=== PATIENT | female | born 1965 | race Caucasian/White ===

== ENCOUNTER 2018-03-01 23:30 | Observation (INO) | payer BC ==
[~2018-03-01] VITALS: Ht 162.6 cm; Wt 62.7 kg
--- NOTE | ~2018-03-01 | HEMODYNAMI ---
PATIENT:ILENE AVILA MEDICAL RECORD: [id number] : 67 LOCATION:D.MS [facility]2206 ADMISSION DATE: 03/02/18 Generatedon:03/02/201812:17 Patient name: ILENE AVILA Patient #: [id number] SSN: D OB: 1965 Date of study: 03/02/2018 Page: Of Hemodynamic Procedure Report Patient Data Patient Demographics Procedure consent was obtained First Name: ILENE Gender: Female Last Name: AUSTIN : 1965 Patient #: [id number] Age: 53 year(s) Race: Unknown Additional ID: [id number] Contact details Address: [address] [place] [address] LINK circle State: [place] City: [place] Zip code: [address] Past Medical History Allergies Allergen Reaction Date Comments Reported Other allergy 03/02/2018 CEFTIN, CODEINE, MORPHINE Admission Admission Data Admission Date: 03/02/2018 Admission Time: 1:04 Room #: D.2206 Lab Results Lab Result Date: 03/02/2018 Lab Result Time: 0:00 Biochemistry Name Units Result Min Max BUN mg/dl 17 --(---*)-- 7 18 Creatinine mg/dl 0.8 --(-*--)-- 0.6 1.3 CBC Name Units Result Min Max Hemoglobin g/dl 14.7 --(-*--)-- 13.5 17.5 Procedure Procedure Types Cath Procedure Diagnostic Procedure LHC LHC w/Coronaries Procedure Description Procedure Date Procedure Date: 03/02/2018 Procedure Start Time: 12:05 Procedure End Time: 12:15 Procedure Staff Name Function Melo Rivas MD Performing Physician Julia John RT Monitor Anneliese Quispe RT Scrub Maged Sanchez RN Nurse Procedure Data Cath Procedure Fluoroscopy Diagnostic fluoroscopy Total fluoroscopy Time: time: 3.52 min 3.52 min Diagnostic fluoroscopy Total fluoroscopy dose: 292 dose: 292 mGy mGy Contrast Material Contrast Material Type Amount (ml) Isovue 300 57 Entry Location Entry Primary Successful Side Size Upsize Upsize Entry Closure [place] ccessful Closure Location (Fr) 1 (Fr) 2 (Fr) Remarks Device Remarks Radial Right 6 Fr Mechanical artery Short Compression Estimated blood loss: 10 ml Diagnostic catheters Device Type Used For End Catheter Placement DIAGNOSTIC [place] 110cm 5 Procedure Fr catheter ([id number]) DIAGNOSTIC AR1 MOD 5Fr Procedure catheter ([id number]) Procedure Complications No complications Procedure Medications Medication Administration Route Dosage Oxygen 2 l/min Heparin Flush Bag added to field 2 bags (1000units/500ml NS) 0.9% NaCl I.V. 100 ml/hr Benadryl I.V. 50 mg Lidocaine 2% added to field 20 Radial Cocktail added to field 1 syringe (Verapomil 2mg/Nitro 400mcg/Heparin 1500units) Fentanyl I.V. 50 mcg Versed I.V. 1 mg Radial Cocktail I.A. 1 syringe (Verapomil 2mg/Nitro 400mcg/Heparin 1500units) Fentanyl I.V. 50 mcg Versed I.V. 1 mg Hemodynamics Rest HGB: 14.7 (g/dl) Heart Rate: 62 (bpm) Pressure Samples Time Site Value (mmHg) Purpose Heart Use Rate(bpm) 12:07 LV 154/-2,17 Snapshot 70 Snapshots Pre Cath Intra NCS Post Cath Vital Signs Time Heart Resp SPO2 etCO2 NIBP (mmHg) Rhythm Pain Sedation Rate (ipm) (%) (mmHg) Status Level (bpm) 11:44:05 63 17 93 0 147/80(113) NSR 0 (11) 10(A) , No pain 11:48:19 62 15 89 0 136/79(121) NSR 0 (11) 10(A) , No pain 11:52:29 65 16 92 0.7 141/79(114) NSR 0 (11) 10(A) , No pain 11:56:41 56 17 93 0 135/80(102) NSR 0 (11) 10(A) , No pain 12:00:50 63 17 93 0 145/77(137) NSR 0 (11) 10(A) , No pain 12:05:04 64 17 94 20.5 148/79(117) NSR 0 (11) 10(A) , No pain 12:09:23 77 17 94 18.1 125/68(95) NSR 0 (11) 9(A) , No pain 12:13:32 75 17 96 20.4 131/66(92) NSR 0 (11) 9(A) , No pain 12:16:43 74 16 96 27.3 137/71(97) NSR 0 (11) 9(A) , No pain Medications Time Medication Route Dose Verified Delivered Reason Notes Effectiveness by by 11:45:05 Oxygen 2 l/min Melo Maged for Rob Sanchez RN arrhythmia 11:45:13 Heparin Flush added 2 bags Melo Maged used for Bag to Rob Sanchez RN procedure (1000units/500ml field NS) 11:45:22 0.9% NaCl I.V. 100 Melo Maged Per ml/hr Rob Sanchez RN physician 11:45:37 Benadryl I.V. 50 mg Melo Maged Per Rob Sanchez RN physician 11:45:47 Lidocaine 2% added 20ml Melo Maged used for to vial Rob Sanchez RN procedure field 11:51:08 Radial Cocktail added 1 Melo Maged used for (Verapomil to syringe Rob Sanchez RN procedure 2mg/Nitro field 400mcg/Heparin 1500units) 12:05:17 Fentanyl I.V. 50 mcg Melo Maged for sedation Rob Sanchez RN 12:05:24 Versed I.V. 1 mg Melo Maged for sedation Rob Sanchez RN 12:06:09 Radial Cocktail I.A. 1 Melo Melo for (Verapomil syringe Rob Rivas MD vasodilation 2mg/Nitro 400mcg/Heparin 1500units) 12:07:30 Fentanyl I.V. 50 mcg Melo Maged for sedation Rob Sanchez RN 12:07:36 Versed I.V. 1 mg Melo Maged for sedation Rob Sanchez vault teller Log Time Note 11:30:29 Maged Sanchez RN sent for patient. Start room use. 11:42:27 Signed procedure consent form obtained from patient. 11:42:37 Time tracking: Regular hours (M-F 7:00 - 5:00) 11:42:40 Plan of Care:Hemodynamics will remain stable., Cardiac rhythm will remain stable., Comfort level will be maintained., Respiratory function will remain adequate., Patient/ family verbilizes understanding of procedure., Procedure tolerated without complication., Recovers from procedure without complications.. 11:42:48 Patient received from Med/Surg to CCL 2 Alert and oriented. Tansferred to table in Supine position. 11:42:49 Warm blankets applied, and joaquina hugger turned on for patient comfort. 11:42:50 Correct patient and procedure confirmed by team. 11:42:50 ECG and BP/O2 sat monitors applied to patient. 11:42:53 Vital chart was started 11:42:54 Baseline sample Acquired. 11:42:58 Rhythm: sinus rhythm 11:42:59 Full Disclosure recording started 11:43:01 Pre-procedure instructions explained to patient. 11:43:02 Pre-op teaching completed and patient verbalized understanding. 11:43:04 Family in waiting room. 11:43:05 Patient NPO since Midnight. 11:43:22 Patient allergic to Other allergyCEFTIN, CODEINE, MORPHINE 11:43:25 Is patient on blood thinner?No 11:43:26 Patient diabetic? No. 11:43:50 Patient not . Patient has had tubal. 11:43:53 Previous problem with sedation/anesthesia? No ? 11:43:54 Snore? Yes 11:43:55 Sleep apnea? No 11:43:56 Deviated septum? No 11:43:56 Opens mouth fully? Yes 11:43:57 Sticks out tongue? Yes 11:43:59 Airway obstruction? No ? 11:44:00 Dentures? No ? 11:44:02 Modified Blas's test Ulnar < 7 seconds 11:44:04 Patient pain scale 0/10 ?. 11:44:08 IV patent on arrival in right antecubital with 0.9% NaCl at [facility]. 11:44:37 Lab Result : BUN 17 mg/dl 11:44:37 Lab Result : Creatinine 0.8 mg/dl 11:44:37 Lab Result : Hemoglobin 14.7 g/dl 11:44:42 Lab results completed and on chart. 11:44:44 Right Radial & Right Groin area was prepped with chlora-prep and draped in sterile fashion 11:44:45 Alarms reviewed by R. N. 11:44:45 Sharps counted by scrub and verified by R.N. 11:44:48 Use device set Radial Dx or PCI 11:44:50 ACIST Syringe (65895) opened to sterile field. 11:44:51 Bag Decanter (2001S) opened to sterile field. 11:44:52 ACIST Hand Control (44980) opened to sterile field. 11:44:52 ACIST Manifold (05894) opened to sterile field. 11:44:53 Tegaderm 4 x 4 (1626W) opened to sterile field. 11:44:54 Medline Cath Pack ([id number]) opened to sterile field. 11:44:55 DIAGNOSTIC WIRE .035 260cm J wire (896912) opened to sterile field. 11:44:55 MBrace Wrist Support ([id number]) opened to sterile field. 11:44:56 SHEATH 6FR Slender (66-6576) opened to sterile field. 11:45:05 Oxygen 2 l/min was administered by Maged Sanchez RN; for arrhythmia; 11:45:13 Heparin Flush Bag (1000units/500ml NS) 2 bags added to field was administered by Maged Sanchez RN; used for procedure; 11:45:22 0.9% NaCl 100 ml/hr I.V. was administered by Maged Sanchez RN; Per physician; 11:45:37 Benadryl 50 mg I.V. was administered by Maged Sanchez RN; Per physician; 11:45:47 Lidocaine 2% 20ml vial added to field was administered by Maged Sanchez RN; used for procedure; 11:51:08 Radial Cocktail (Verapomil 2mg/Nitro 400mcg/Heparin 1500units) 1 syringe added to field was administered by Maged Sanchez RN; used for procedure; 12:05:08 Physician arrived 12:05:09 --------ALL STOP TIME OUT------ 12:05:09 Final Timeout: patient, procedure, and site verified with staff and physician. All members of the team are in agreement. 12:05:13 Right Radial & Right Groin site verified by team. 12:05:16 Physical assessment completed. ASA score P 2 - A patient with mild systemic disease as per Melo Rivas MD. 12:05:17 Fentanyl 50 mcg I.V. was administered by Maged Sanchez RN; for sedation; 12:05:20 Sedation plan: IV Moderate Sedation Medication:Versed, Fentanyl 12:05:24 Versed 1 mg I.V. was administered by Maged Sanchez RN; for sedation; 12:05:36 Procedure started. 12:05:47 Local anesthetic to right radial artery with Lidocaine 2% by Melo Rivas MD.INITIAL ACCESS ONLY 12:05:58 A 6 Fr Short sheath was inserted into the Right Radial artery 12:06:09 Radial Cocktail (Verapomil 2mg/Nitro 400mcg/Heparin 1500units) 1 syringe I.A. was administered by Melo Rivas MD; for vasodilation; 12:06:54 A DIAGNOSTIC [place] 110cm 5 Fr catheter (112591) was advanced over the wire and used for Procedure. 12:07:30 Fentanyl 50 mcg I.V. was administered by Maged Sanchez RN; for sedation; 12:07:32 LV gram done using ULLOA 12:07:36 Versed 1 mg I.V. was administered by Maged Sanchez RN; for sedation; 12:07:39 EF : 60 % 12:08:02 LCA angiography performed. 12:08:08 NEEDLE Cook 21G 4cm Radial ([id number]) opened to sterile field. 12:10:25 Catheter removed. 12:11:27 A DIAGNOSTIC AR1 MOD 5Fr catheter ([id number]) was advanced over the wire and used for Procedure. 12:11:45 RCA angiography performed. 12:13:21 Catheter removed. 12:13:30 Sheath removed intact; hemostasis achieved with Mechanical Compression to the Right Radial artery. 12:14:34 Procedure ended.(Physican Out) 12:14:44 Fluoroscopy time 03.52 minutes. 12:14:49 Fluoroscopy dose: 292 mGy 12:14:49 Flurop Dose total: 292 12:14:54 Contrast amount:Isovue 300 57ml. 12:14:55 Sharps counted by scrub and verified by R.N. 12:15:00 TR band inflated with 10cc of air. 12:15:02 Insertion/operative site no bleeding no hematoma. 12:15:08 Post-procedure physical assessment completed. ASA score P 2 - A patient with mild systemic disease as per Melo Rivas MD. 12:15:11 Post procedure rhythm: unchanged. 12:15:14 Estimated blood loss: 10 ml 12:15:16 Post procedure instruction explained to patient.Patient verbalizes understanding. 12:15:26 Procedure and supply charges have been captured, reviewed, submitted and are correct. 12:15:44 Procedure Complication : No complications 12:15:47 Vital chart was stopped 12:15:48 See physician's report for complete and final results. 12:15:50 Report given to Pre/Post Procedure Room. 12:15:53 Patient transfered to Pre/Post Procedure Room with Stretcher. 12:15:55 Procedure ended. 12:15:55 Full Disclosure recording stopped 12:15:59 End room use (Document Last) Device Usage Item Name Manufacture Quantity Catalog Hospital Part Current Minimal Lot# / Number Charge Number Stock Stock Serial# Code ACIST Acist 1 79719 [id number] 574828 043905 20 Syringe Medical (16794) Systems Inc Bag Microtek 1 2001S 985091 68945 867403 5 Decanter Medical Inc. () ACIST Hand Acist 1 81301 545709 459099 726806 5 Control Medical (15066) Systems Inc ACIST Acist 1 03874 776682 844115 833207 5 Manifold Medical (65277) Systems Inc Tegaderm 4 3M 1 1626W 766849 506399 669079 5 x 4 (1626W) Medline Medline 1 [id number] 014017 77786 075265 5 Cath Pack ([id number]) DIAGNOSTIC [facility] 1 085804 412667 682395 773016 30 WIRE .035 260cm J wire (459788) MBrace Advanced 1 140-0250-00 108358 14706 619389 5 Wrist Vascular Support Dynamics ([id number]) SHEATH 6FR Terumo 1 [id number] 021714 449333 066027 5 Slender (80-1060) DIAGNOSTIC Terumo 1 40-8393 258005 980195 412436 5 [place] 110cm 5 Fr catheter (254725) NEEDLE Fanbase Medical 1 [id number] 561659 637223 724886 5 21G 4cm Radial (Q70835) DIAGNOSTIC Cardinal 1 [id number] 557153 011196 742046 15 AR1 MOD 5Fr Health catheter (718926N) Signature Audit [place] Stage Time Signature Unsigned Intra-Procedure 03/02/2018 Julia John 12:17:30 PM RT(R) Signatures Monitor : Julia John Signature : RT Date : Time : [facility] [address] [place] [address]
[2018-03-01] MEDS ORDERED: ULTRAM50 MG (23:36)
[2018-03-02] VITALS: BP 125/75; BP 134/75
[2018-03-02 00:07] LABS: HEMATOCRIT 36.5 % (36.0-48.0); HEMOGLOBIN 12.1 g/dL (12-16); LYMPHOCYTES 23.8 % (15-50); MCH 29.2 pg (26.0-34.0); MCHC 33.2 g/dL (31.0-37.0); MCV 88.2 fL (80.0-100.0); MEAN PLATELET VOLUME 9.4 fL (7.4-10.4); NEUTROPHILS 69.4 % (40-80); PLATELET COUNT 303 10x3/uL (130-400); RBC 4.14 10x6/uL (4.00-5.40); WBC 12.1 10x3/uL (4.8-10.8)
--- NOTE | 2018-03-02 00:07 | NUR ---
ASPIRIN 325MG PO GIVEN. NITRO SL GIVEN, PAIN IS AN 8, MID STERNAL.
[2018-03-02 00:09] LABS: APTT 25.6 SECONDS (22.8-39.4); INR 0.95 (0.85-1.17); PROTIME 12.2 SECONDS (11.6-15.0)
[2018-03-02 00:28] LABS: ALBUMIN 3.7 g/dL (3.4-5.0); ALKALINE PHOSPHATASE 65 U/L (46-116); ALT (SGPT) 22 U/L (10-68); BILIRUBIN - TOTAL 0.19 mg/dL (0.2-1.3); CALC OSMOLALITY 279 mosm/kg (275-300); CALCIUM 8.8 mg/dL (8.5-10.1); CARBON DIOXIDE 25.8 mmol/L (21.0-32.0); CHLORIDE - SERUM 103 mmol/L (98-107); CKMB 0.8 U/L (0.0-3.6); CREATINE KINASE 117 UL (21-215); CREATININE - SERUM 0.9 mg/dL (0.6-1.3); GLUCOSE 110 mg/dL (74-106); POTASSIUM - SERUM 3.4 mmol/L (3.5-5.1); PROTEIN - SERUM 6.9 g/dL (6.4-8.2); SODIUM 140 mmol/L (136-145); UREA NITROGEN 12 mg/dL (7-18); eGFR NON AFRICAN AMERICAN 70 mL/min (90-120)
[2018-03-02 00:29] LABS: TROPONIN-I < 0.017 ng/mL (0.000-0.060)
--- NOTE | 2018-03-02 00:56 | NUR ---
PT AMBULATED TO RESTROOM.
[2018-03-02 01:17] LABS: APPEARANCE CLEAR (CLEAR); BILIRUBIN NEGATIVE (NEGATIVE); COLOR STRAW (YELLOW); GLUCOSE NEGATIVE (NEGATIVE); KETONE NEGATIVE (NEGATIVE); NITRITE NEGATIVE (NEGATIVE); PROTEIN NEGATIVE (NEGATIVE); UROBILINOGEN NORMAL (NORMAL)
[2018-03-02 01:42] VITALS: BP 109/74
--- NOTE | 2018-03-02 02:30 | NUR ---
RECEIVED PT FROM ER VIA W/C. ACCOMPANIED BY SPOUSE. ALERT AND ORIENTED X4. ANXIOUS AND RESTLESS. STATES SHE HAS BEEN HURTING IN HER LT GROIN/HIP FOR SEVERAL MONTHS AND HAD CHEST PAIN YESTERDAY. POINTS TO EPIGASTRIC REGION AND RATES PAIN 2 AND INTERMITTENT. TELEMETRY SHOWS SB-SR WITH RATE OF 58-67. RESP EVEN AND NONLABORED. BBS CTA. ABD SOFT, NONTENDER. BS PRESENT X4 QUADS. VOIDS WITHOUT DIFF. AMBULATORY. REPORTS ONLY HOME MED IBUPROFEN 800MG TID. SPOUSE CONSTANTLY INTERRUPTING STAFF DURING ASSESSMENT QUESTIONS AND VOICING HIS OPINION ON WHAT HER DIAGNOSIS MAY BE AND ARGUING. SALINE LOCK NOTED TO RT AC. NO DISTRESS. CL IN REACH.
[2018-03-02] MEDS ORDERED: IBUPROFEN800 MG (02:43)
[2018-03-02 03:03] VITALS: BP 139/75; Ht 162.6 cm; Wt 62.7 kg
[2018-03-02 05:23] LABS: CKMB 1.1 U/L (0.0-3.6); CREATINE KINASE 95 UL (21-215); TROPONIN-I < 0.017 ng/mL (0.000-0.060)
[2018-03-02 08:22] VITALS: BP 134/69
--- NOTE | 2018-03-02 08:53 | NUR ---
PT AOX4 RESP EVEN AND NONLABORED PT DENIES NEEDS AT THIS TIME IV TO RIGHT AC PATENT AND INTACT AT THIS TIME IV TO RIGHT AC PATENT AND INTACT AT THIS TIME SRX2 BED AT LOWEST SETTING CALL LIGHT WITHIN REACH WILL CONTINUE TO MONITOR
[2018-03-02 09:34] LABS: HEMATOCRIT 42.8 % (36.0-48.0); LYMPHOCYTES 27.7 % (15-50); MCH 32.2 pg (26.0-34.0); MCHC 34.3 g/dL (31.0-37.0); MEAN PLATELET VOLUME 10.3 fL (7.4-10.4); NEUTROPHILS 63.4 % (40-80); PLATELET COUNT 244 10x3/uL (130-400); RBC 4.57 10x6/uL (4.00-5.40); RDW 12.6 % (11.5-14.5)
[2018-03-02 09:36] LABS: HEMOGLOBIN 14.7 g/dL (12-16); MCV 93.7 fL (80.0-100.0)
[2018-03-02 09:38] LABS: CALC OSMOLALITY 284 mosm/kg (275-300); CALCIUM 8.5 mg/dL (8.5-10.1); CARBON DIOXIDE 23.6 mmol/L (21.0-32.0); CHLORIDE - SERUM 105 mmol/L (98-107); CREATININE - SERUM 0.8 mg/dL (0.6-1.3); GLUCOSE 100 mg/dL (74-106); POTASSIUM - SERUM 3.6 mmol/L (3.5-5.1); SODIUM 142 mmol/L (136-145); eGFR NON AFRICAN AMERICAN 80 mL/min (90-120)
[2018-03-02 09:39] LABS: UREA NITROGEN 17 mg/dL (7-18)
--- NOTE | 2018-03-02 12:30 | NUR ---
PT RECEIVED VIA STETCHER FROM DOUBLE NEEDLE STITCHER FOR RECOVERY. PT ASLEEP BUT RESPONDS TO VERBAL STIMULI. HR 64 NSR, BP 112/73, O2 SAT 93 ON ROOM AIR, O2 ON AT 2L/NC. DENIES PAIN OR NAUSEA. TR BAND TO R WRIST, DRESSING CDI NO BLEEDING OR SWELLING NOTED. CALL LIGHT IN REACH.
--- NOTE | 2018-03-02 12:45 | NUR ---
PT SLEEPING, HR NSR RATE 51, BP 129/67, O2 SAT 97 ON 2L/NC. TR BAND IN PLACE, NO BLEEDING OR SWELLING NOTED TO SITE. CALL LIGHT IN REACH.
--- NOTE | 2018-03-02 13:15 | NUR ---
PT DROWSY, REQUESTING COLA GIVEN. TR BAND IN PLACE NO BLEEDING OR SWELLING NOTED. HR 78 NSR. AT BEDSIDE, CALL LIGHT IN REACH.
--- NOTE | 2018-03-02 13:30 | NUR ---
PT SITTING UP, TOLERATING FLUIDS DOES NOT WANT A SANDWICH AT THIS TIME. C/O BACK HURTING, REQUESTING MOTRIN. TR BAND IN PLACE, 3CC AIR REMOVED W NO BLEEDING OR SWELLING NOTED. CALL LIGHT IN REACH, VSS.
--- NOTE | 2018-03-02 13:45 | NUR ---
MOTRIN 600 GIVEN FOR BACK PAIN. HOB RAISED FOR COMFORT. DENIES OTHER PAIN OR NEEDS
--- NOTE | 2018-03-02 14:20 | NUR ---
STATES BACK PAIN SOME BETTER. MONITORS AND O2 OFF . IV DC'D WITH CATH INTACT. PT UP TO DRESS FOR DISCHARGE
--- NOTE | 2018-03-02 14:25 | NUR ---
DISCHARGE INSTRUCTIONS REVIEWED W PT AND , VERBALIZED UNDERSTANDING . TR BAND REMOVED WITH ADD'L AIR, NO BLEEDING OR SWELLING NOTED. NEW DRESSING APPLIED.
--- NOTE | 2018-03-02 14:37 | NUR ---
PT DISCHARGED VIA WC TO PRIVATE VEHICLE
== END 2018-03-02 14:38 | disposition home or self-care (01) ==
LOC: D.ER 23:30 → OBSVTIME 03-02 01:04 → D.MS 03-02 01:04 → D.EDHOLD 03-02 01:04 → D.MS 03-02 01:45 → D.CLR 03-02 12:24
PROVIDERS: Emergency Medicine; Internal Medicine Cardiovascular Disease; ADMIT Family Medicine
DX: I25.110 Atherosclerotic heart disease of native coronary artery with unstable angina pectoris (principal); F17.213 Nicotine dependence, cigarettes, with withdrawal

== ENCOUNTER → 2018-03-14 06:24 | Outpatient (CLI) | payer BC ==
[2018-03-02 03:03] VITALS: BMI 23.7
[~2018-03-14 06:24] MED LIST: IBUPROFEN800 MG; ULTRAM50 MG
== END | disposition home or self-care (01) ==
LOC: D.RAD 03-09 08:15 → D.MRI 06:24 → D.RAD 08:15
DX: M25.552 Pain in left hip (principal)

== ENCOUNTER → 2018-03-28 19:30 | Outpatient (CLI) | payer BC ==
[2018-03-02 03:03] VITALS: BMI 23.7
== END | disposition home or self-care (01) ==
LOC: D.MAMMO 03-02 10:30
DX: N63.21 Unspecified lump in the left breast, upper outer quadrant (principal); N63.11 Unspecified lump in the right breast, upper outer quadrant

== ENCOUNTER → 2018-04-27 12:55 | Outpatient (CLI) | payer BC ==
[2018-03-02 03:03] VITALS: BMI 23.7
== END | disposition home or self-care (01) ==
LOC: D.HCCARDIO 12:55
PROVIDERS: ATTEND Internal Medicine Cardiovascular Disease
DX: R06.02 Shortness of breath (principal)